=== PATIENT | male | born 1995 | race African-American/Black ===

== ENCOUNTER 2016-11-26 19:30 | Emergency (ER) | payer SELFPAY ==
[2016-11-26 19:37] VITALS: BP 134/74
--- NOTE | 2016-11-26 20:10 | UC ---
General HPI - HPI Summary HPI Summary: This is a 21 yo male with depression and ADHD who presents with a request for refill of his Ritalin. He moved to the area from [place] recently. He was established with a psychiatrist there that was prescribing his medication. His psychiatrist did not feel comfortable continuing to prescribe the medication without re-evaluating him. Patient looked in to his insurance network and the closest provider is [facility]. He has plans to travel back to [place] monthly to continue care with his primary psychiatrist in the future. <Matthew Fajardo - Last Filed: 11/26/16 20:05> <Bernadine Puente - Last Filed: 11/26/16 20:29> - History of Current Complaint Chief Complaint: UCMedRefill Stated Complaint: MED REFILL - Allergy/Home Medications Allergies/Adverse Reactions: Allergies Allergy/AdvReac Type Severity Reaction Status Date / Time No Known Allergies Allergy Verified 11/26/16 19:37 Home Medications: Home Medications Sertraline* [Zoloft*] 100 mg PO DAILY 11/26/16 [History Confirmed 11/26/16] PMH/Surg Hx/FS Hx/Imm Hx Previously Healthy: No - depression and ADHD - Surgical History Surgical History: Yes Surgery Procedure, Year, and Place: UMBILICAL HERNIA REPAIR 2009 - Social History Alcohol Use: Weekly Alcohol Amount: WEEKENDS (2-3 BEERS) Substance Use Type: None Smoking Status (MU): Current Every Day Smoker Type: Cigarettes Amount Used/How Often: 1/2 PPD <Matthew Fajardo - Last Filed: 11/26/16 20:05> Review of Systems Constitutional: Negative Skin: Negative Eyes: Negative ENT: Negative Respiratory: Negative Cardiovascular: Negative Gastrointestinal: Negative Genitourinary: Negative Motor: Negative Neurovascular: Negative Musculoskeletal: Negative Neurological: Negative Psychological: Negative All Other Systems Reviewed And Are Negative: Yes <Matthew Fajardo - Last Filed: 11/26/16 20:05> Physical Exam Triage Information Reviewed: Yes Appearance: Well-Appearing Vital Signs: Initial Vital Signs Temp 98.2 F 11/26/16 19:33 Pulse 98 11/26/16 19:33 Resp 16 11/26/16 19:33 BP 134/74 11/26/16 19:33 Pulse Ox 100 11/26/16 19:33 Vital Signs Reviewed: Yes Respiratory: Positive: Lungs clear, Normal breath sounds. Negative: Crackles, Rhonchi, Wheezing Cardiovascular: Positive: RRR, No Murmur Abdomen Description: Positive: Nontender, Soft <Matthew Fajardo - Last Filed: 11/26/16 20:05> Vital Signs: Initial Vital Signs Temp 98.2 F 11/26/16 19:33 Pulse 98 11/26/16 19:33 Resp 16 11/26/16 19:33 BP 134/74 11/26/16 19:33 Pulse Ox 100 11/26/16 19:33 <Bernadine Puente - Last Filed: 11/26/16 20:29> Course/Dx - Course Course Of Treatment: This is a 21 yo male with ADHD and depression who presented with request for Ritalin refill - Differential Dx - Multi-Symptom Provider Diagnoses: 1. Medication refill <Matthew Fajardo - Last Filed: 11/26/16 20:05> Discharge <Matthew Fajardo - Last Filed: 11/26/16 20:05> <Bernadine Puente - Last Filed: 11/26/16 20:29> - Discharge Plan Condition: Stable Disposition: HOME Prescriptions: Methylphenidate TAB* [Ritalin TAB*] 20 mg PO TID #45 tab MDD 3 tabs Patient Education Materials: Methylphenidate (By mouth) Referrals: No Primary Care Phys,NOPCP [Primary Care Provider] - Additional Instructions: Activity: As tolerated Instructions: 1. Please coordinate future refills with your psychiatrist or establish with your psychiatrist in the area Attestation Statement User Type: Provider - I was available for consult. This patient was seen by the [facility]. The patient was not presented to, seen by, or examined by me. -Sudeep <Bernadine Puente - Last Filed: 11/26/16 20:29>
== END 2016-11-26 20:00 | disposition home or self-care (01) ==
LOC: UCEAST 19:30
DX: Z76.0 Encounter for issue of repeat prescription (principal); F90.9 Attention-deficit hyperactivity disorder, unspecified type; F32.9 Major depressive disorder, single episode, unspecified; Z72.0 Tobacco use
CPT/HCPCS: 99202; G0463

== ENCOUNTER 2016-12-09 17:06 | Emergency (ER) | payer SELFPAY ==
[2016-12-09 18:04] LABS: Urine Bilirubin Negative (Negative); Urine Glucose Negative (Negative); Urine Nitrite Negative (Negative)
[2016-12-09 18:09] LABS: Hematocrit 40 % (42-52); Hemoglobin 13.1 g/dl (14.0-18.0); Mean Corpuscular HGB Conc 33 g/dl (31-36); Mean Corpuscular Hemoglobin 29 pg (27-31); Mean Corpuscular Volume 89 fL (80-94); Mean Platelet Volume 9 um3 (7.4-10.4); Red Blood Count 4.53 10^6/ul (4.0-5.4); Red Cell Distribution Width 14 % (10.5-15); White Blood Count 7.6 10^3/ul (3.5-10.8)
[2016-12-09 18:26] LABS: ALT 30 U/L (7-52); AST 29 U/L (13-39); Albumin 4.6 g/dL (3.2-5.2); Alkaline Phosphatase 62 U/L (34-104); Anion Gap 7 mmol/L (2-11); BUN/Creatinine Ratio 8.5 (8-20); Blood Urea Nitrogen 12 mg/dL (6-24); CO2 Carbon Dioxide 27 mmol/L (22-32); Calcium 9.5 mg/dL (8.6-10.3); Chloride 106 mmol/L (101-111); EGFR African American 80.8 (>60); EGFR Non-African American 62.9 (>60); Globulin 3.4 g/dL (2-4); Glucose 109 mg/dL (70-100); Sodium 140 mmol/L (133-145)
[2016-12-09 18:26] LABS: Benzodiazepine Urine Screen None Detected (None Detect)
[2016-12-09 18:45] LABS: Acetaminophen < 15 mcg/mL; Alcohol 187 mg/dL (<10); Salicylate < 2.50 mg/dL (<30)
[2016-12-09 18:54] LABS: TSH (Thyroid Stimulating Horm) 0.86 mcIU/mL (0.34-5.60)
[2016-12-09 21:13] VITALS: BP 139/75
--- NOTE | 2016-12-09 23:02 | ED ---
I, Gerson,Lynnette, scribed for Willem Finley MD on 12/09/16 at 1755 . Psychiatric Complaint - HPI Summary HPI Summary: This 21 y/o male presents to ED for depression. SI is reported at time of triage , but not mentioned at initial evaluation. Positive substance abuse with EtOH, meth, and dexamphetamine. Pt drinks 6 pack and "some hard liquor" a day. Pt did consume EtOH today, and has been drinking since 3 years ago. No Hx of detox. [facility], but decided to visit ED today when he felt that it's taking too long. Recently loss employment. - History Of Current Complaint Chief Complaint: EDMentalHealth Time Seen by Provider: 12/09/16 17:21 Hx Obtained From: Patient, Family/[employer] - female friend present at bedside and provides some collateral Onset/Duration: Gradual Onset Timing: Constant Character: Depressed Aggravating Factor(s): Recent Stress - loss of employment Alleviating Factor(s): Nothing Related History: Positive For: Prior Psychiatric Issues Has Suicidal: Reports: Thoughts - Allergies/Home Medications Allergies/Adverse Reactions: Allergies Allergy/AdvReac Type Severity Reaction Status Date / Time No Known Allergies Allergy Verified 11/26/16 19:37 PMH/Surg Hx/FS Hx/Imm Hx Cardiovascular History: Denies: Hx Myocardial Infarction GI History: Reports: Other GI Disorders - umbilical hernia s/p repair - Surgical History Surgery Procedure, Year, and Place: UMBILICAL HERNIA REPAIR 2009 Infectious Disease History: Denies: Traveled Outside the [place] in Last 30 Days - Social History Alcohol Use: Daily Alcohol Amount: WEEKENDS (2-3 BEERS) Hx Substance Use: No Substance Use Type: Reports: None Hx Tobacco Use: Yes Smoking Status (MU): Current Every Day Smoker Type: Cigarettes Amount Used/How Often: 1/2 PPD Review of Systems Negative: Fever Positive: Depressed, Other - Possible SI All Other Systems Reviewed And Are Negative: Yes Physical Exam Triage Information Reviewed: Yes Vital Signs On Initial Exam: Initial Vitals Temp Pulse Resp BP Pulse Ox 97.4 F 91 20 142/90 99 12/09/16 17:11 12/09/16 17:11 12/09/16 17:11 12/09/16 17:11 12/09/16 17:11 Vital Signs Reviewed: Yes Appearance: Positive: Well-Appearing, No Pain Distress Skin: Positive: Warm, Skin Color Reflects Adequate Perfusion Head/Face: Positive: Normal Head/Face Inspection ENT: Positive: Normal ENT inspection Neck: Positive: Supple, Nontender Respiratory/Lung Sounds: Positive: Clear to Auscultation, Breath Sounds Present Cardiovascular: Positive: Normal Abdomen Description: Positive: Nontender, Soft Musculoskeletal: Positive: Normal Neurological: Positive: Normal Psychiatric: Positive: Depressed AVPU Assessment: Alert Diagnostics - Vital Signs Vital Signs Temp Pulse Resp BP Pulse Ox 12/09/16 17:11 97.4 F 91 20 142/90 99 - Laboratory Lab Results: Lab Results 12/09/16 12/09/16 12/09/16 Range/Units 17:35 17:35 17:55 WBC 7.6 (3.5-10.8) 10^3/ul RBC 4.53 (4.0-5.4) 10^6/ul Hgb 13.1 L (14.0-18.0) g/dl Hct 40 L (42-52) % MCV 89 (80-94) fL MCH 29 (27-31) pg MCHC 33 (31-36) g/dl RDW 14 (10.5-15) % Plt Count 267 (150-450) 10^3/ul MPV 9 (7.4-10.4) um3 Neut % (Auto) 61.6 (38-83) % Lymph % (Auto) 28.6 (25-47) % [place] % (Auto) 6.2 (1-9) % Eos % (Auto) 2.7 (0-6) % Baso % (Auto) 0.9 (0-2) % Absolute Neuts (auto) 4.7 (1.5-7.7) 10^3/ul Absolute Lymphs (auto) 2.2 (1.0-4.8) 10^3/ul Absolute Monos (auto) 0.5 (0-0.8) 10^3/ul Absolute Eos (auto) 0.2 (0-0.6) 10^3/ul Absolute Basos (auto) 0.1 (0-0.2) 10^3/ul Absolute Nucleated RBC 0 10^3/ul Nucleated RBC % 0.1 Sodium (133-145) mmol/L Potassium (3.5-5.0) mmol/L Chloride (101-111) mmol/L Carbon Dioxide (22-32) mmol/L Anion Gap (2-11) mmol/L BUN (6-24) mg/dL Creatinine (0.67-1.17) mg/dL Est GFR ( Amer) (>60) Est GFR (Non-Af Amer) (>60) BUN/Creatinine Ratio (8-20) Glucose (70-100) mg/dL Calcium (8.6-10.3) mg/dL Total Bilirubin (0.2-1.0) mg/dL AST (13-39) U/L ALT (7-52) U/L Alkaline Phosphatase (34-104) U/L Total Protein (6.4-8.9) g/dL Albumin (3.2-5.2) g/dL Globulin (2-4) g/dL Albumin/Globulin Ratio (1-3) TSH (0.34-5.60) mcIU/mL Urine Color Straw Urine Appearance Clear Urine pH 6.0 (5-9) Ur Specific [place] 1.004 L (1.010-1.030) Urine Protein Negative (Negative) Urine Ketones Negative (Negative) Urine Blood Negative (Negative) Urine Nitrate Negative (Negative) Urine Bilirubin Negative (Negative) Urine Urobilinogen Negative (Negative) Ur Leukocyte Esterase Negative (Negative) Urine Glucose Negative (Negative) Salicylates (<30) mg/dL Urine Opiates Screen None detected (None Detect) Acetaminophen mcg/mL Ur Barbiturates Screen None detected (None Detect) Ur Phencyclidine Scrn None detected (None Detect) Ur Amphetamines Screen Presumptive positive H (None Detect) U Benzodiazepines Scrn None detected (None Detect) Urine Cocaine Screen Presumptive positive H (None Detect) U Cannabinoids Screen None detected (None Detect) Serum Alcohol (<10) mg/dL 12/09/16 Range/Units 17:55 WBC (3.5-10.8) 10^3/ul RBC (4.0-5.4) 10^6/ul Hgb (14.0-18.0) g/dl Hct (42-52) % MCV (80-94) fL MCH (27-31) pg MCHC (31-36) g/dl RDW (10.5-15) % Plt Count (150-450) 10^3/ul MPV (7.4-10.4) um3 Neut % (Auto) (38-83) % Lymph % (Auto) (25-47) % [place] % (Auto) (1-9) % Eos % (Auto) (0-6) % Baso % (Auto) (0-2) % Absolute Neuts (auto) (1.5-7.7) 10^3/ul Absolute Lymphs (auto) (1.0-4.8) 10^3/ul Absolute Monos (auto) (0-0.8) 10^3/ul Absolute Eos (auto) (0-0.6) 10^3/ul Absolute Basos (auto) (0-0.2) 10^3/ul Absolute Nucleated RBC 10^3/ul Nucleated RBC % Sodium 140 (133-145) mmol/L Potassium 4.0 (3.5-5.0) mmol/L Chloride 106 (101-111) mmol/L Carbon Dioxide 27 (22-32) mmol/L Anion Gap 7 (2-11) mmol/L BUN 12 (6-24) mg/dL Creatinine 1.41 H (0.67-1.17) mg/dL Est GFR ( Amer) 80.8 (>60) Est GFR (Non-Af Amer) 62.9 (>60) BUN/Creatinine Ratio 8.5 (8-20) Glucose 109 H (70-100) mg/dL Calcium 9.5 (8.6-10.3) mg/dL Total Bilirubin 0.30 (0.2-1.0) mg/dL AST 29 (13-39) U/L ALT 30 (7-52) U/L Alkaline Phosphatase 62 (34-104) U/L Total Protein 8.0 (6.4-8.9) g/dL Albumin 4.6 (3.2-5.2) g/dL Globulin 3.4 (2-4) g/dL Albumin/Globulin Ratio 1.4 (1-3) TSH 0.86 (0.34-5.60) mcIU/mL Urine Color Urine Appearance Urine pH (5-9) Ur Specific [place] (1.010-1.030) Urine Protein (Negative) Urine Ketones (Negative) Urine Blood (Negative) Urine Nitrate (Negative) Urine Bilirubin (Negative) Urine Urobilinogen (Negative) Ur Leukocyte Esterase (Negative) Urine Glucose (Negative) Salicylates < 2.50 (<30) mg/dL Urine Opiates Screen (None Detect) Acetaminophen < 15 mcg/mL Ur Barbiturates Screen (None Detect) Ur Phencyclidine Scrn (None Detect) Ur Amphetamines Screen (None Detect) U Benzodiazepines Scrn (None Detect) Urine Cocaine Screen (None Detect) U Cannabinoids Screen (None Detect) Serum Alcohol 187 H (<10) mg/dL Result Diagrams: 12/09/16 17:55 12/09/16 17:55 Lab Statement: Any lab studies that have been ordered have been reviewed, and results considered in the medical decision making process. Course/Dx - Course Course Of Treatment: Mr. Lizama was sobered up in the ED and is being evaualted in the Flex unit for possiblee placement in inpatient rehab. He has not shown signs of medical withdrawal yet. - Differential Dx/Clinical Impression Provider Diagnosis: Polysubstance abuse, Alcohol intoxication Discharge - Discharge Plan Condition: Stable Disposition: OTHER Discharge Disposition Comment: Change of SHift The documentation as recorded by the Gerson gamboa Soohyun accurately reflects the service I personally performed and the decisions made by me, Willem Finley MD.
== END 2016-12-10 00:30 ==
LOC: ED 17:06
DX: F19.10 Other psychoactive substance abuse, uncomplicated (principal); F10.129 Alcohol abuse with intoxication, unspecified; Y90.6 Blood alcohol level of 120-199 mg/100 ml; F32.9 Major depressive disorder, single episode, unspecified
CPT/HCPCS: 36415; 80053; 80307; 80320; 80329; 81003; 84443; 85025; 93005; 99285; G0480

== ENCOUNTER 2018-10-21 16:02 | Emergency (ER) | payer OTHER ==
--- NOTE | 2018-10-21 18:04 | ED ---
Substance Abuse/Use - HPI Summary HPI Summary: Pt is a 23 y/o M presenting to the ED with a chief complaint of wanting to detox. He states he has been a drinker for the past four years, drinking anywhere from 6-20 beers/day. He currently uses EtOH and marijuana, but has used other drugs, including crack, in the past. In the morning when he wakes up , he experiences jitters and discomfort, like the beginning of withdrawal, and recently has more thoughts of suicide and feeling worthless. He denies any nausea or fevers. He also has Adderall and Klonopin prescriptions for his ADHD and anxiety, respectively, but he states he does not abuse those. He used to abuse Ritalin because itd help him drink more. - History Of Current Complaint Chief Complaint: EDDetoxRequest Stated Complaint: DETOX PYSCH EVAL PER PT Time Seen by Provider: 10/21/18 16:57 Hx Obtained From: Patient Onset/Duration of Drug/ETOH Abuse: Years Overdose Characteristics: Oral Timing Of Abuse: Daily Severity Initially: Moderate Severity Currently: Moderate Character: Depressed Aggravating Factor(s): Nothing Alleviating Factor(s): Nothing Related Hx: Drug/Alcohol Last Used @ - earlier today, 10/21/18, Suicidal: Thoughts - Allergies/Home Medications Allergies/Adverse Reactions: Allergies Allergy/AdvReac Type Severity Reaction Status Date / Time No Known Allergies Allergy Verified 10/21/18 16:08 Home Medications: Home Medications clonazePAM [Clonazepam] 1 tab PO DAILY PRN 10/21/18 [History Confirmed 10/21/18] PMH/Surg Hx/FS Hx/Imm Hx Previously Healthy: Yes Endocrine/Hematology History: Denies: Hx Blood Disorders Cardiovascular History: Denies: Hx Myocardial Infarction GI History: Reports: Other GI Disorders - umbilical hernia s/p repair Psychiatric History: Reports: Hx Anxiety, Hx Attention Deficit Hyperactivity Disorder, Hx Depression, Hx Substance Abuse - Surgical History Surgery Procedure, Year, and Place: UMBILICAL HERNIA REPAIR 2009 Infectious Disease History: No Infectious Disease History: Denies: Traveled Outside the [place] in Last 30 Days - Family History Known Family History: Negative: Cardiac Disease - Social History Alcohol Use: Daily Alcohol Amount: daily 6-12 beers Hx Substance Use: Yes Substance Use Type: Reports: Marijuana Hx Tobacco Use: Yes Smoking Status (MU): Heavy Every Day Tobacco Smoker Type: Cigarettes Amount Used/How Often: 1/2 PPD Review of Systems Negative: Fever Negative: Nausea Positive: Depressed All Other Systems Reviewed And Are Negative: Yes Physical Exam - Summary Physical Exam Summary: Constitutional: Well-developed, Well-nourished, Alert. (-) Distressed Skin: Warm, Dry HENT: Normocephalic; Atraumatic Eyes: Conjunctiva normal Neck: Musculoskeletal ROM normal neck. (-) JVD, (-) Stridor, (-) Tracheal deviation Cardio: Rhythm regular, rate normal, Heart sounds normal; Intact distal pulses; The pedal pulses are 2+ and symmetric. Radial pulses are 2+ and symmetric. Pulmonary/Chest wall: Effort normal. (-) Respiratory distress, (-) Wheezes, (-) Rales Abd: Soft, (-) tenderness, (-) Distension, (-) Guarding, (-) Rebound Musculoskeletal: (-) Edema Neuro: Alert, Oriented x3 Psych: Mood and affect Normal Triage Information Reviewed: Yes Vital Signs On Initial Exam: Initial Vitals Temp Pulse Resp BP Pulse Ox 97.7 F 96 18 152/88 100 10/21/18 16:05 10/21/18 16:05 10/21/18 16:05 10/21/18 16:05 10/21/18 16:05 Vital Signs Reviewed: Yes Diagnostics - Vital Signs Vital Signs Temp Pulse Resp BP Pulse Ox 10/21/18 16:05 97.7 F 96 18 152/88 100 - Laboratory Lab Statement: Any lab studies that have been ordered have been reviewed, and results considered in the medical decision making process. Course/Dx - Course Course Of Treatment: Pt is a 23 y/o M presenting to the ED with a chief complaint of wanting to detox. He states he has been a drinker for the past four years, drinking anywhere from 6-20 beers/day. He currently uses EtOH and marijuana, but has used other drugs, including crack, in the past. He also has Adderall and Klonopin prescriptions for his ADHD and anxiety, respectively, but he states he does not abuse those. He used to abuse Ritalin because itd help him drink more. I spoke with social work at 1800 who stated they are going to make some phone calls and try to get the patient a bed at an inpatient rehab facility. 1800 - I spoke with social work who stated they would try to find a place for him then call back. 1830 - Social work called and said [facility] in [place] will take the patient as long as his BERNICE is a reasonable level. Pt will be signed out to Dr. Lazaro at shift change pending BERNICE. - Diagnoses Provider Diagnoses: Alcoholism Discharge - Sign-Out/Discharge Documenting (check all that apply): Sign-Out Patient - pend BERNICE Signing out patient TO: Jean Paul Lazaro - Discharge Plan Condition: Stable Referrals: Care [facility] [Outside] - Billing Disposition and Condition Condition: STABLE - Attestation Statements Document Initiated by Scribe: Yes Documenting Scribe: Nika Gramajo Provider For Whom Anastacia is Documenting (Include Credential): Rudy Rust MD. Scribe Attestation: INika, scribed for Rudy Rust MD. on 10/21/18 at 1907. Scribe Documentation Reviewed: Yes Provider Attestation: The documentation as recorded by the scribe, Nika Gramajo accurately reflects the service I personally performed and the decisions made by me, Rudy Rust MD. Status of Scribe Document: Viewed Consult Consult: 1800 - I spoke with social work who stated they would try to find a place for him then call back. 183 - Social work called and said [facility] in [place] will take the patient as long as his BERNICE is a reasonable level.
--- NOTE | 2018-10-21 19:06 | ED ---
Progress - Progress Note Progress Note: Pt is a sign out from Dr. Rust to Dr. Lazaro at shift change on 10/21/18 at 1900 pending a BERNICE test return. Course/Dx - Course Course Of Treatment: Pt is a sign out from Dr. Rust to Dr. Lazaro at shift change on 10/21/18 at 1900 pending a BERNICE test return. The pt's BERNICE test showed that he has a serum alcohol level of 124. Due to this the pt is discharged to [facility] at [address] [place] [address]. At 1999 I spoke with social work at [facility] who admits the pt into their care. The phone number is [phone] and he has been referred to Devi who is the intake personal at the facility. His girlfriend will be taking him to the facility. He was diagnosed with alcoholism. - Diagnoses Provider Diagnoses: Alcoholism Discharge - Sign-Out/Discharge Documenting (check all that apply): Patient Departure - discharge to [facility] , Receiving Sign-Out Receiving patient FROM: Rudy Rust Patient Received Moderate/Deep Sedation with Procedure: No - Discharge Plan Condition: Stable Disposition: HOME Patient Education Materials: Abuse of Alcohol (ED) Referrals: [facility] [Outside] Additional Instructions: Pt is discharged with his girlfriend's assistance to [facility] at [address] [place] [address]. The phone number is [phone] and he has been referred to Devi who is the intake personal at the facility. - Attestation Statements Document Initiated by Scribe: Yes Documenting Scribe: Humberto Toney Provider For Whom Anastacia is Documenting (Include Credential): Jean Paul Lazaro MD Scribe Attestation: Humberto Elliott, scribed for Jean Paul Lazaro MD on 10/21/18 at 2223. Status of Scribe Document: Ready Consult Consult: At 1999 I spoke with social work at [facility] who admits the pt into their care.
[2018-10-21 19:24] LABS: HIV 4th Generation Negative (Negative)
[2018-10-21 19:42] VITALS: BP 117/70
== END 2018-10-21 20:24 | disposition home or self-care (01) ==
LOC: ED 16:02
DX: F10.20 Alcohol dependence, uncomplicated (principal); F12.90 Cannabis use, unspecified, uncomplicated; F90.9 Attention-deficit hyperactivity disorder, unspecified type; F41.9 Anxiety disorder, unspecified; F17.210 Nicotine dependence, cigarettes, uncomplicated
CPT/HCPCS: 36415; 80320; 87389; 99282; G0480

== ENCOUNTER 2019-03-31 13:07 | Inpatient (IN) | payer MEDICAID, OTHER ==
--- NOTE | 2019-03-31 13:24 | ED ---
Psychiatric Complaint - HPI Summary HPI Summary: This patient is a 24 year old M presenting to [facility] accompanied by a friend with a chief complaint of SI since earlier today. He is here because his friend did not want him to kill himself. Pt states he does not want to go back to [place], where he lives. The thought to go back is stressing him out. Pt currently does not have a counselor. He has been admitted previously for his mental health. The patient rates the pain 0/10 in severity. Symptoms aggravated by nothing. Symptoms alleviated by nothing. Pt denies any fever, chills, erythema of eyes, sore throat, CP, SOB, cough, abdominal pain, N/V, dysuria, hematuria, myalgia, edema, rash, or dizziness. Pt uses marijuana and drinks alcohol. - History Of Current Complaint Chief Complaint: EDSuicidal Time Seen by Provider: 03/31/19 13:20 Hx Obtained From: Patient Onset/Duration: Sudden Onset Timing: Constant Severity Initially: Mild Severity Currently: Mild Aggravating Factor(s): Nothing Alleviating Factor(s): Nothing Associated Signs And Symptoms: Positive: Negative Has Suicidal: Reports: Thoughts - Allergies/Home Medications Allergies/Adverse Reactions: Allergies Allergy/AdvReac Type Severity Reaction Status Date / Time No Known Allergies Allergy Verified 03/31/19 13:17 PMH/Surg Hx/FS Hx/Imm Hx Previously Healthy: Yes Endocrine/Hematology History: Denies: Hx Blood Disorders Cardiovascular History: Denies: Hx Hypercholesterolemia, Hx Hypertension, Hx Myocardial Infarction GI History: Reports: Other GI Disorders - umbilical hernia s/p repair Sensory History: Denies: Hx Legally Blind, Hx Deafness Opthamlomology History: Denies: Hx Legally Blind EENT History: Denies: Hx Deafness Psychiatric History: Reports: Hx Anxiety, Hx Attention Deficit Hyperactivity Disorder, Hx Depression, Hx Substance Abuse - Surgical History Surgical History: Yes Surgery Procedure, Year, and Place: UMBILICAL HERNIA REPAIR 2009 Infectious Disease History: No Infectious Disease History: Denies: Traveled Outside the [place] in Last 30 Days - Family History Known Family History: Negative: Cardiac Disease - Social History Occupation: Unemployed Lives: Alone Alcohol Use: Daily Alcohol Amount: daily 6-12 beers Hx Substance Use: Yes Substance Use Type: Reports: Marijuana Hx Tobacco Use: Yes Smoking Status (MU): Heavy Every Day Tobacco Smoker Type: Cigarettes Amount Used/How Often: 1/2 PPD Review of Systems Negative: Fever, Chills Negative: Erythema Negative: Sore Throat Negative: Chest Pain Negative: Shortness Of Breath, Cough Negative: Abdominal Pain, Vomiting, Nausea Negative: dysuria, hematuria Negative: Myalgia, Edema Negative: Rash Neurological: Other - negative - dizziness Psychological: Other - positive - SI All Other Systems Reviewed And Are Negative: Yes Physical Exam - Summary Physical Exam Summary: General: Well appearing, no distress Cardiovascular: Skin is well perfused Pulmonary: No respiratory distress, no tachypnea Abdomen: Non-distended Skin: Warm, pink, dry Psych: Normal affect Neuro: A&Ox3 Triage Information Reviewed: Yes Vital Signs On Initial Exam: Initial Vitals Temp Pulse Resp BP Pulse Ox 99.2 F 122 16 163/104 99 03/31/19 13:10 03/31/19 13:10 03/31/19 13:10 03/31/19 13:10 03/31/19 13:10 Vital Signs Reviewed: Yes Procedures - Sedation Patient Received Moderate/Deep Sedation with Procedure: No Diagnostics - Vital Signs Vital Signs Temp Pulse Resp BP Pulse Ox 03/31/19 13:10 99.2 F 122 16 163/104 99 - Laboratory Result Diagrams: 03/31/19 13:46 03/31/19 13:46 Lab Statement: Any lab studies that have been ordered have been reviewed, and results considered in the medical decision making process. Course/Dx - Course Course Of Treatment: This patient is a 24 year old M presenting to [facility] accompanied by a friend with a chief complaint of SI since earlier today. He is here because his friend did not want him to kill himself. Pt states he does not want to go back to [place], where he lives. The thought to go back is stressing him out. Pt currently does not have a counselor. He has been admitted previously for his mental health. The patient rates the pain 0/10 in severity. Symptoms aggravated by nothing. Symptoms alleviated by nothing. Pt denies any fever, chills, erythema of eyes, sore throat, CP, SOB, cough, abdominal pain, N/ V, dysuria, hematuria, myalgia, edema, rash, or dizziness. Pt uses marijuana and drinks alcohol. Physical exam shows no remarkable findings. Lab results show Hgb 13.5, Hct 40, creatinine 1.20, urine cocaine screen positive A, U cannabinoids positive A. During ED course, pt was given nicotine patch. At 15: 33, night coordinator reports that patients case was reviewed by Dr. Temo Snider who will admit the patient [place] [facility] for a diagnosis of substance-induced mood disorder. Patient will admitted to [facility] with a diagnosis of substance- induced mood disorder. - Differential Dx/Clinical Impression Provider Diagnosis: Substance induced mood disorder - Physician Notifications Discussed Care Of Patient With: Temo Snider - At 15:33, night coordinator reports that patients case was reviewed by Dr. Temo Snider who will admit the patient to [facility] for a diagnosis of substance-induced mood disorder. Time Discussed With Above Provider: 15:33 Instructed by Provider To: Admit As Inpatient Discharge ED - Sign-Out/Discharge Documenting (check all that apply): Patient Departure - Admit - Discharge Plan Condition: Stable Disposition: [facility]IATRIC [facility]AC[facility]errals: [facility] [Outside] - Attestation Statements Document Initiated by Scribe: Yes Documenting Scribe: Marika Manzanares Provider For Whom Erinibnatalio is Documenting (Include Credential): Dr. Chas Helton MD Scribe Attestation: I, Marika Manzanares, scribed for Dr. Chas Helton MD on 03/31/19 at 1551. Status of Scribe Document: Ready
[2019-03-31 13:56] LABS: ABS Basophils 0.1 10^3/ul (0-0.2); ABS Eosinophils 0.3 10^3/ul (0-0.6); ABS Lymphocytes 2.7 10^3/ul (1.0-4.8); ABS Monocytes 0.4 10^3/ul (0-0.8); ABS Neutrophils 2.4 10^3/ul (1.5-7.7); Eosinophil % 5.7 %; Hematocrit 40 % (42-52); Hemoglobin 13.5 g/dL (14.0-18.0); Lymphocyte % 45.1 %; Mean Corpuscular HGB Conc 34 g/dL (31-36); Mean Corpuscular Hemoglobin 29 pg (27-31); Mean Corpuscular Volume 86 fL (80-94); Mean Platelet Volume 8.8 fL (7.4-10.4); Nucleated Red Blood Cells % 0.2; Platelet Count 281 10^3/uL (150-450); Red Blood Count 4.67 10^6 /uL (4.18-5.48); Red Cell Distribution Width 14 % (10-15)
[2019-03-31 14:02] LABS: Urine Appearance Clear; Urine Bilirubin Negative (Negative); Urine Blood Negative (Negative); Urine Color Yellow; Urine Glucose Negative (Negative); Urine Ketones Negative (Negative); Urine Nitrite Negative (Negative); Urine Protein Negative (Negative); Urine Specific Gravity 1.018 (1.010-1.030); Urine Urobilinogen Negative (Negative)
[2019-03-31 14:13] LABS: ALT 19 U/L (7-52); AST 22 U/L (13-39); Albumin 4.5 g/dL (3.2-5.2); Albumin/Globulin Ratio 1.3 (1-3); Alkaline Phosphatase 52 U/L (34-104); Anion Gap 8 mmol/L (2-11); Blood Urea Nitrogen 12 mg/dL (6-24); CO2 Carbon Dioxide 27 mmol/L (22-32); Calcium 9.6 mg/dL (8.6-10.3); Chloride 106 mmol/L (101-111); EGFR African American 89.3 (>60); EGFR Non-African American 73.8 (>60); Globulin 3.6 g/dL (2-4); Glucose 93 mg/dL (70-100); Potassium 3.9 mmol/L (3.5-5.0); Sodium 141 mmol/L (135-145); Total Protein 8.1 g/dL (6.4-8.9)
[2019-03-31 14:14] LABS: Urine Benzodiazepine Screen None Detected (None Detect); Urine Opiates Screen None Detected (None Detect)
[2019-03-31] MEDS ORDERED: Tobramycin 0.3% OPHTH.SOL* 5 ML BOT (regular eye drops) RIGHT EYE ONE (14:20)
[2019-03-31] MEDS ORDERED: Nicotine PATCH 14 MG/24 HR* PATCH TRANSDERM ONE (14:23)
[2019-03-31 14:37] LABS: Acetaminophen < 15 mcg/mL; Alcohol 154 mg/dL (<10); Salicylate < 2.50 mg/dL (<30)
[2019-03-31 14:51] LABS: TSH (Thyroid Stimulating Horm) 0.98 mcIU/mL (0.34-5.60)
[2019-03-31] MEDS ORDERED: Nicotine* 2MG (FRUIT FLAVOR) GUM PO PRN (19:35)
[2019-03-31] MEDS ORDERED: Acetaminophen TAB* 325 MG PO PRN (19:35)
[2019-03-31] MEDS ORDERED: Lorazepam PYXIS KEY PRN (19:36)
[2019-03-31] MEDS ORDERED: LORazepam IM 0-6 mg for WAM protocol IM SCH (20:00)
[2019-03-31] MEDS ORDERED: LORazepam PO 0-6 for WAM protocol PO SCH (20:00)
[2019-03-31] MEDS: Nicotine Patch Removal NOTE PATCH OFF SCH (21:57)
[2019-03-31] MEDS: Al Hydrox/Mg Hydrox/Simet LIQ* 30 ML UDC PO PRN (22:25)
[2019-04-01] MEDS: Vitamin THERAPEUTIC TAB PO SCH (08:56)
[2019-04-01] MEDS: Nicotine PATCH 21 MG/24 HR* PATCH TRANSDERM SCH (08:57)
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
[2019-04-01] MEDS: Thiamine TAB* 100 MG TAB PO SCH (15:07)
[2019-04-01] MEDS: Al Hydrox/Mg Hydrox/Simet LIQ* 30 ML UDC PO PRN (15:38)
[2019-04-01] MEDS: Nicotine Patch Removal NOTE PATCH OFF SCH (19:39)
[2019-04-01] MEDS: Escitalopram * 10 MG TAB PO SCH (21:16)
[2019-04-02] MEDS: Thiamine TAB* 100 MG TAB PO SCH (08:59)
[2019-04-02] MEDS: Vitamin THERAPEUTIC TAB PO SCH (08:59)
[2019-04-02] MEDS: Nicotine PATCH 21 MG/24 HR* PATCH TRANSDERM SCH (09:01)
--- NOTE | 2019-04-02 10:21 | PN ---
Subjective - Subjective Date of Service: 04/02/19 Service Type: [id number] Hosp care 15 min low complexity Subjective: Reports his mother makes life harder, and this fed into SI. Reports slept well last night, has an appetite, has been reading, did yoga last night. Objective - General Observations Appearance: Neat Appears Stated Age: Yes Stature: Tall Posture: WNL Eye Contact: Average Behavior/Activity: WNL - Interaction Observations Attitude Towards Examiner: Cooperative Stated Mood: Euthymic Affect: Full Speech Pattern/Tone: Clear, Appropriate, Normal Volume Thought Process: Coherent, Goal Directed Perception: WNL Thought Content: WNL Hallucination Type: None Delusion Type: None - Cognitive Function Orientation: A&O x 4 Level of Consciousness: Awake, Alert, Appropriate Cognition: WNL Estimated Intelligence: Above Normal Insight: WNL Judgment Within Normal Limits: Yes - Medication Compliance Cooperative with Inpatient Medication Regimen: Yes - Group Participation Participates in Group Activities: Yes Assessment - Assessment Merits Inpatient Hospitalization: For Stabilization, Consolidate Improvements, For Discharge Planning Clinical Impression: Travon reports remission of SI and improved mood with good sleep. He is looking forward to developing an aftercare with his social security benefits interviewer on Thursday. 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 Has jail plans to resume college at studying film toward goal of production and screenwriting. Plan - Plan Treatment Plan: Name: TRAVON GREENE Birthdate: 1995 [id number] Continue therapeutic milieu and groups. Continue Lexapro 10 mg daily - reports no side effects thus far. Travon expects to engage in aftercare at [facility]. Seeking assistance with living situation from social security benefits interviewer. Continued Medication Management: Start Medication Medications: Current Medications Acetaminophen (Tylenol Tab*) 650 mg PO Q4H PRN PRN Reason: PAIN or TEMP > 101 F Al Hydrox/Mg Hydrox/Simethicone (Maalox Plus*) 30 ml PO Q4H PRN PRN Reason: INDIGESTION Last Admin: 04/01/19 15:38 Dose: 30 ml Escitalopram Oxalate (Lexapro *) 10 mg PO BEDTIME KRISTIE Last Admin: 04/01/19 21:16 Dose: 10 mg Lorazepam (Ativan Tab(*)) 0 - 6 mg PO .PER [facility]; Protocol Last Admin: 03/31/19 22:23 Dose: 2 mg Lorazepam (Ativan Inj*) 0 - 6 mg IM .PER [facility] PROTOCOL KRISTIE; Protocol Miscellaneous (Ativan Pyxis Johnson) 1 ea N/A .PYXIS JOHNSON PRN PRN Reason: PER PROTOCOL Multivitamins (Theragran Tab*) 1 tab PO DAILY [facility] Last Admin: 04/02/19 08:59 Dose: 1 tab Nicotine (Nicotine Patch 21 Mg/24 Hr*) 1 patch TRANSDERM DAILY [facility] Last Admin: 04/02/19 09:01 Dose: 1 patch Nicotine Polacrilex (Nicotine Gum*) 2 mg PO Q2H PRN PRN Reason: CRAVINGS Pharmacy Profile Note (Nicotine Patch Removal Note*) 1 note PATCH OFF 2100 [facility] Last Admin: 04/01/19 19:39 Dose: Not Given Thiamine HCl (Vitamin B-1 Tab*) 200 mg PO DAILY [facility] Last Admin: 04/02/19 08:59 Dose: 200 mg - Discharge Plan Discharge Plan: Outpatient Follow Up Outpatient [facility]
[2019-04-02] MEDS: Escitalopram * 10 MG TAB PO SCH (20:18)
[2019-04-02] MEDS: Nicotine Patch Removal NOTE PATCH OFF SCH (20:28)
[2019-04-03] MEDS: Thiamine TAB* 100 MG TAB PO SCH (08:48)
[2019-04-03] MEDS: Vitamin THERAPEUTIC TAB PO SCH (08:48)
[2019-04-03] MEDS: Nicotine PATCH 21 MG/24 HR* PATCH TRANSDERM SCH (08:48)
--- NOTE | 2019-04-03 12:48 | PN ---
Progress Note - Progress Note Date of Service: 04/03/19 Note: Travon requests beta rosalba as anxiolytic. Reports having used with good effect in the past. Also interested in trial of atomoxetine. Will defer on this option to weekday team. Will place order for propranol 10 mg 2x/d as needed for anxiety. Travon's blood pressure was elevated this morning with a rapid pulse, so may benefit also cardiovascularly from propranol. Vital Signs - 8 hr 04/03/19 04/03/19 07:54 08:00 Temperature 98.2 F Pulse Rate 93 Respiratory 16 16 Rate Blood Pressure 157/81 (mmHg) O2 Sat by Pulse 99 Oximetry
[2019-04-03] MEDS: Escitalopram * 10 MG TAB PO SCH (20:03)
[2019-04-03] MEDS: Nicotine Patch Removal NOTE PATCH OFF SCH (21:16)
[2019-04-04] MEDS: Vitamin THERAPEUTIC TAB PO SCH (08:41)
[2019-04-04] MEDS: Thiamine TAB* 100 MG TAB PO SCH (08:41)
[2019-04-04] MEDS: Nicotine PATCH 21 MG/24 HR* PATCH TRANSDERM SCH (08:42)
[2019-04-04 08:47] VITALS: BP 148/72
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
== END 2019-04-04 12:30 | disposition home or self-care (01) | DRG 751 ==
LOC: ED 13:07 → BSU 16:37 → ED 18:23 → BSU 04-01 23:25
PROVIDERS: ADMIT Psychiatry & Neurology Psychiatry; ATTEND Psychiatry & Neurology Psychiatry
DX: F32.2 Major depressive disorder, single episode, severe without psychotic features (principal); R45.851 Suicidal ideations; F17.210 Nicotine dependence, cigarettes, uncomplicated; Z62.810 Personal history of physical and sexual abuse in childhood; F90.9 Attention-deficit hyperactivity disorder, unspecified type; F41.9 Anxiety disorder, unspecified; Z56.0 Unemployment, unspecified; Z72.89 Other problems related to lifestyle; Z79.899 Other long term (current) drug therapy; Z28.21 Immunization not carried out because of patient refusal
CPT/HCPCS: 36415; 80053; 80307; 80320; 80329; 81003; 84443; 85025; 93005; 99222; 99231; 99238; 99284; A9270-GY; G0480